=== PATIENT | female | born 1950 | race Caucasian/White ===

== ENCOUNTER → 2016-08-09 | Outpatient (CLI) | payer OTHER | LOC: FIMAGING 11:59 | PROVIDERS: ATTEND Family Medicine | DX: Z12.39 Encounter for other screening for malignant neoplasm of breast (principal); N64.4 Mastodynia | CPT/HCPCS: G0204 ==

== ENCOUNTER → 2016-09-27 | Outpatient (CLI) | payer OTHER ==
[~2016-09-27] MED LIST: IOPAMIDOL (ISOVUE-300) 100 ML BTL ONE
[2016-09-27 10:59] LABS: CREATININE 0.7 mg/dL (0.6-1.0); GLOMERULAR FILTRATION RATE > 60
== END ==
LOC: FIMAGING 10:22
PROVIDERS: ATTEND Family Medicine
DX: K59.00 Constipation, unspecified (principal); R60.9 Edema, unspecified
CPT/HCPCS: 74177; Q9967

== ENCOUNTER 2016-10-19 12:12 | Day surgery (SDC) | payer OTHER ==
[2016-10-19] MEDS ORDERED: fentaNYL 100 MCG/2 ML INJ IV ONE (12:45)
[2016-10-19] MEDS ORDERED: LIDOCAINE 1% 300 MG/30 ML SDV IF ONE (12:45)
[2016-10-19] MEDS ORDERED: MIDAZOLAM 2 MG/2 ML VIAL IVP ONE (12:45)
[2016-10-19] MEDS ORDERED: DIAZEPAM 5 MG TAB PO ONE (12:45)
--- NOTE | 2016-10-20 08:07 | CPIP ---
[f rep st] INVASIVE CARDIAC PROCEDURE PROCEDURE: LINQ IQ insertion. The serial number of the device is [id number]. INDICATION FOR PROCEDURE: History of cryptogenic stroke. Long-term monitoring to rule out atrial f ibrillation as the cause. COMPLICATIONS: None. PROCEDURE IN DETAIL: After informed consent was obtained and n.p.o. status was confirmed, the regio n of the left parasternal area was cleaned, prepped and draped in sterile fashion. Approximately 15 cc of 1% lidocaine were utilized for local anesthesia. After adequate anesthesia had been achieved , a #15 blade was used to sharply incise the skin. Blunt dissection with the supplied dissection to ol was used to open the pocket. The LINQ IQ device was then inserted. Local pressure was used for hemostasis and, following the procedure, the skin was closed with 3 freddy and a sterile dressing w as applied. FINAL IMPRESSION: Successful LINQ IQ insertion for indication of cryptogenic stroke, and to rule ou t atrial fibrillation as a tachydysrhythmia causing that condition. /[id number]/MODL
== END 2016-10-19 14:00 | disposition home or self-care (01) ==
LOC: FCATH 12:12
PROVIDERS: ATTEND Internal Medicine Cardiovascular Disease
PROC: 0JH602Z Insertion of Monitoring Device into Chest Subcutaneous Tissue and Fascia, Open Approach (ICD-10-PCS; principal; 2016-10-19)
DX: I48.91 Unspecified atrial fibrillation (principal); Z86.73 Personal history of transient ischemic attack (TIA), and cerebral infarction without residual deficits
CPT/HCPCS: C1764

== ENCOUNTER → 2017-01-12 | Outpatient (CLI) | payer OTHER | LOC: FIMAGING 09:50 | PROVIDERS: ATTEND Family Medicine | DX: I86.2 Pelvic varices (principal); L28.0 Lichen simplex chronicus; N95.0 Postmenopausal bleeding; N95.2 Postmenopausal atrophic vaginitis ==

== ENCOUNTER → 2017-10-12 | Outpatient (CLI) | payer OTHER | LOC: FIMAGING 08:23 | PROVIDERS: ATTEND Internal Medicine | DX: I86.2 Pelvic varices (principal); I70.0 Atherosclerosis of aorta ==

== ENCOUNTER 2018-10-16 17:38 | Emergency (ER) | payer OTHER | END 2018-10-16 20:34 | disposition home or self-care (01) ==